=== PATIENT | female | born 1950 | race Caucasian/White ===

== ENCOUNTER → 2018-02-20 10:33 | Outpatient (CLI) | payer MEDICARE, SELFPAY ==
--- NOTE | 2018-02-20 10:38 | RAD_ITS ---
STUDY: X-RAY - PELVIS REASON FOR EXAM: Female, 67 years old. Fibromyalgia, psoriatic arthropathy TECHNIQUE: One view of the pelvis was obtained. COMPARISON: None. FINDINGS: There is a non-specific bowel gas pattern. Normal visualized soft tissue structures. Normal bilateral iliac wings, sacroiliac joints and visualized sacrum. Normal visualized bilateral superior and inferior pubic rami. Normal pubic symphysis. Normal ischial tuberosities. Normal visualized right femoral head. Normal right acetabulum. Normal right hip joint. Normal visualized left femoral head. Normal left acetabulum. Normal left hip joint. RAD/Pelvis 1 or 2 Views IMPRESSION: Normal x-ray examination of the pelvis. Electronically Signed: Lawrence Garzon MD at 20:00 EDT , Service support ,
[2018-02-20 12:22] LABS: Absolute Neutrophil Count 7.9 X10^3/uL (2.0-7.7); Basophil# 0.05 X10^3/uL; Basophil% 0.4 % (0-1); Eosinophil# 0.13 X10^3/uL; Eosinophils% 1.2 % (0-5); Hematocrit 41.3 % (37-47); Hemoglobin 13.2 g/dl (12.0-15.0); Lymphocyte % 20.5 % (19-41); Mean Corpuscular Hgb 30.2 pg (27.0-32.0); Mean Corpuscular Volume 94.5 fL (81-99); Monocyte# 0.82 X10^3/uL; Monocyte% 7.3 % (0-10); Neutrophil % 70.2 % (47-70); Platelet Count 267 K/mm3 (150-450); RBC Distribution Width CV 13.4 % (11.6-14.6); RBC Distribution Width SD 46.3 fl (35.1-43.9); Red Blood Count 4.37 M/mm3 (4.2-5.4); White Blood Count 11.2 K/mm3 (4.4-11.0)
[2018-02-20 12:23] LABS: Erythrocyte Sedimentation Rate 36 mm/hr (0-30)
[2018-02-20 12:24] LABS: POSITIVE COUNT NO; POSITIVE DIFFERENTIAL NO; POSITIVE MORPHOLOGY NO
[2018-02-20 13:00] LABS: ALB/GLOB Ratio 0.8 RATIO (0.9-2.4); AST(SGOT) 13 U/L (15-37); Alanine Aminotransfer ALT/SGPT 24 U/L (13-56); Albumin, Serum 3.6 g/dL (3.2-5.0); Alkaline Phosphatase 89 U/L (45-117); Anion Gap 9 (5-15); BUN 28 mg/dL (7-18); BUN/Creat Ratio 27.2 RATIO (10-20); CRP 3.45 mg/L (0.0-3.0); Calcium,Total 9.3 mg/dL (8.5-10.1); Chloride 102 mmol/L (98-107); Creatinine, Serum 1.03 mg/dL (0.55-1.02); EST Glomerular Filtration Rate 57 mL/min (>60); Est Glom Filt Rate - Afr Amer 69 mL/min (>60); Globulin 4.4 g/dL (2.2-4.2); Glucose 85 mg/dL (74-106); Potassium 4.5 mmol/L (3.5-5.1); Rheumatoid Factor < 10.0 IU/mL (<15); Sodium Level 138 mmol/L (136-145)
[2018-02-22 13:10] LABS: SJOGREN'S Anti-SS-A test < 0.2 AI (0.0-0.9); SJOGREN'S Anti-SS-B test < 0.2 AI (0.0-0.9)
[2018-02-22 13:42] LABS: ANTINUCLEAR ANTIBODIES DIRECT Negative (Negative)
== END ==
PROVIDERS: Family Provider Family Medicine; PCP Family Medicine; Referring Provider Internal Medicine Rheumatology; Visit Provider Internal Medicine Rheumatology
DX: L40.59 Other psoriatic arthropathy (principal); L40.8 Other psoriasis; M79.7 Fibromyalgia; M50.30 Other cervical disc degeneration, unspecified cervical region; M51.37 Other intervertebral disc degeneration, lumbosacral region; K21.9 Gastro-esophageal reflux disease without esophagitis; K44.9 Diaphragmatic hernia without obstruction or gangrene; E78.5 Hyperlipidemia, unspecified; J44.9 Chronic obstructive pulmonary disease, unspecified; R32 Unspecified urinary incontinence
CPT/HCPCS: 36415; 72170; 80053; 81374; 85025; 85652; 86038; 86140; 86200; 86235; 86431; 86480; 86706; 86803; 87340

== ENCOUNTER → 2018-02-25 09:12 | Outpatient (CLI) | payer MEDICARE, SELFPAY ==
--- NOTE | 2018-02-25 09:17 | US_ITS ---
STUDY: ABDOMINAL ULTRASOUND - RIGHT UPPER QUADRANT REASON FOR VISIT: Female, 67 years old. Elevated LFTs TECHNIQUE: Ultrasound evaluation of the right upper quadrant was performed with real-time and static verma-scale imaging. TECHNICAL QUALITY: Adequate. COMPARISON: None. FINDINGS: Liver: The liver measures 20 cm. Trace perihepatic fluid. There is fatty echogenicity of the liver. The bile ducts are within normal limits. There is hepatic color flow. The direction of portal flow is hepatopetal. There is no demonstrated mass lesion. Gallbladder: Status post cholecystectomy. Common Bile Duct (C.B.D.): The common bile duct measures 5 mm. Pancreas: Normal size of the head, body and tail of the pancreas. There is increased echogenicity of the pancreas. There is no demonstrated pancreatic mass or cyst. Right Kidney: Normal size of the right kidney. The right kidney measures 11.1 x 6.7 x 4.9 cm. Normal renal cortex. The right cortex measures 1.3 cm. There is a 2.8 cm cyst. There is no right hydronephrosis. US/Abdomen Limited IMPRESSION: Fatty enlarged liver. Trace perihepatic fluid Right renal cyst. Electronically Signed: Chet Hall DO at 22:42 EDT Tel [phone], Service support ,
== END ==
LOC: US 09:12
PROVIDERS: Family Provider Family Medicine; PCP Family Medicine; Referring Provider Internal Medicine Rheumatology; Visit Provider Internal Medicine Rheumatology
DX: L40.59 Other psoriatic arthropathy (principal); L40.8 Other psoriasis; M79.7 Fibromyalgia; M50.30 Other cervical disc degeneration, unspecified cervical region; M51.37 Other intervertebral disc degeneration, lumbosacral region; K21.9 Gastro-esophageal reflux disease without esophagitis; K44.9 Diaphragmatic hernia without obstruction or gangrene
CPT/HCPCS: 76705

== ENCOUNTER → 2018-03-11 11:40 | Outpatient (CLI) | payer MEDICARE, SELFPAY | PROVIDERS: Family Provider Family Medicine; PCP Family Medicine; Referring Provider Internal Medicine Rheumatology; Visit Provider Internal Medicine Rheumatology | DX: L40.59 Other psoriatic arthropathy (principal); L40.8 Other psoriasis; M79.7 Fibromyalgia; M50.30 Other cervical disc degeneration, unspecified cervical region; M51.37 Other intervertebral disc degeneration, lumbosacral region; K21.9 Gastro-esophageal reflux disease without esophagitis; K44.9 Diaphragmatic hernia without obstruction or gangrene; I10 Essential (primary) hypertension; E78.5 Hyperlipidemia, unspecified; J44.9 Chronic obstructive pulmonary disease, unspecified; R32 Unspecified urinary incontinence ==

== ENCOUNTER → 2018-04-15 10:22 | Outpatient (CLI) | payer MEDICARE, SELFPAY ==
[2016-03-10 10:25] VITALS: BMI 43.2
[2018-04-15 10:49] LABS: Absolute Lymphocyte Count 1.75 X10^3/ul (0.83-4.51); Absolute Neutrophil Count 5.1 X10^3/uL (2.0-7.7); Basophil# 0.03 X10^3/uL; Basophil% 0.4 % (0-1); Eosinophil# 0.11 X10^3/uL; Eosinophils% 1.5 % (0-5); Hematocrit 39.5 % (37-47); Hemoglobin 12.7 g/dl (12.0-15.0); Lymphocyte # 1.75 X10^3/ul (4.0); Lymphocyte % 23.1 % (19-41); Mean Corp Hgb Conc 32.2 g/gl (32-36); Mean Corpuscular Volume 96.3 fL (81-99); Mean Platelet Vol. 10.2 fl (6.2-12.0); Monocyte# 0.55 X10^3/uL; Monocyte% 7.3 % (0-10); Neutrophil % 67.4 % (47-70); Platelet Count 235 K/mm3 (150-450); RBC Distribution Width CV 13.9 % (11.6-14.6); RBC Distribution Width SD 46.5 fl (35.1-43.9); White Blood Count 7.6 K/mm3 (4.4-11.0)
[2018-04-15 10:51] LABS: POSITIVE COUNT NO; POSITIVE DIFFERENTIAL NO; POSITIVE MORPHOLOGY NO
[2018-04-15 11:14] LABS: ALB/GLOB Ratio 0.8 RATIO (0.9-2.4); AST(SGOT) 19 U/L (15-37); Alanine Aminotransfer ALT/SGPT 25 U/L (13-56); Albumin, Serum 3.3 g/dL (3.2-5.0); Alkaline Phosphatase 88 U/L (45-117); Anion Gap 8 (5-15); BUN 24 mg/dL (7-18); BUN/Creat Ratio 21.6 RATIO (10-20); Chloride 102 mmol/L (98-107); Creatinine, Serum 1.11 mg/dL (0.55-1.02); EST Glomerular Filtration Rate 52 mL/min (>60); Est Glom Filt Rate - Afr Amer 63 mL/min (>60); Globulin 4.2 g/dL (2.2-4.2); Glucose 94 mg/dL (74-106); Potassium 4.2 mmol/L (3.5-5.1); Protein, Total 7.5 g/dL (6.4-8.2); Sodium Level 138 mmol/L (136-145)
--- OUTSIDE RECORDS SUMMARY | 2018-06-08 15:29 | XMS RPT_ITS ---
:1950 Author Organization OHIP Care Team Providers Name Role Phone Julieth Gerardo Attending Unavailable Julieth Gerardo Referring Unavailable Flor Kovacs Primary Care Unavailable Julieth Gerardo Attending Unavailable Julieth Gerardo Referring Unavailable Flor Kovacs Primary Care Unavailable Julieth Gerardo Attending Unavailable Julieth Gerardo Referring Unavailable Flor Kovacs Primary Care Unavailable Julieth Gerardo Attending Unavailable Julieth Gerardo Referring Unavailable Flor Kovacs Primary Care Unavailable Flor Kovacs Attending Unavailable Flor Kovacs Primary Care Unavailable Flor Kovacs Admitting Unavailable Flor Kovacs Attending Unavailable Flor Kovacs Primary Care Unavailable Flor Kovacs Admitting Unavailable Flor Kovacs Attending Unavailable Flor Kovacs Primary Care Unavailable Flor Kovacs Attending Unavailable Flor Kovacs Primary Care Unavailable Flor Kovacs Admitting Unavailable MD AMELIA BOWEN Attending Unavailable Flor Kovacs Primary Care Unavailable MD AMELIA BOWEN Admitting Unavailable Amelia Bowen Admitting Unavailable Amelia Bowen Attending Unavailable Flor Kovacs Primary Care Unavailable Flor Kovacs Admitting Unavailable Flor Kovacs Attending Unavailable Flor Kovacs Primary Care Unavailable Flor Kovacs Admitting Unavailable Flor Kovacs Attending Unavailable Flor Kovacs Primary Care Unavailable Flor Kovacs Admitting Unavailable Flor Kovacs Attending Unavailable Flor Kovacs Primary Care Unavailable Flor Kovacs Admitting Unavailable Flor Kovacs Attending Unavailable Flor Kovacs Primary Care Unavailable PROBLEMS PROBLEMS DATE TYPE CONDITION / CODE ATTENDING STATUS SOURCE 04/15/2018 Unknown 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, 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 / Hospital L40.59(ICD-10) Repository 04/15/2018 Unknown L40.8 - Other Dennislanki, Julieth Active [facility] psoriasis / [facility] L40.8(ICD-10) Hospital Repository 04/15/2018 Unknown M79.7 - Fibromyalgia Akin, Julieth Active [place] / M79.7(ICD-10) [facility] Repository 04/15/2018 Unknown 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, Hospital unspecified cervical Repository region / M50.30(ICD-10) 04/15/2018 Unknown M51.37 - Other DennislanTaylor taylorma Active [facility] intervertebral disc Community degeneration, Hospital lumbosacral region / Repository M51.37(ICD-10) 04/15/2018 Unknown K76.0 - Fatty Juleith Gerardo Active [facility] (change of) liver, Community not elsewhere Hospital classified / Repository K76.0(ICD-10) 02/22/2018 Active Encounter for NA Active [facility] Main medical examination [place] without abnormal Repository findings / Z00.00(ICD-10) 02/20/2018 Unknown K21.9 - Julieth Gerardo Active [facility] reflux disease Hospital without esophagitis Repository / K21.9(ICD-10) 02/20/2018 Unknown K44.9 - VellanJulieth taylor Active [facility] Diaphragmatic hernia Community without obstruction Hospital or gangrene / Repository K44.9(ICD-10) PROCEDURES PROCEDURES No Procedure Records FoundRESULTS RESULTS CBC W/DIFF, AUTOMATED Collected: 04/15/2018 Status: F Source: [place] 10:28 AM [facility] REPOSITORY TYPE CODE TESTS RESULT OUT OF RANGE REFERENCE UNITS LAB L100.1000 4.4-11.0 K/mm3 Normal WBC 7.6 LAB L100.1200 4.2-5.4 M/mm3 Low RBC 4.10 LAB L100.1300 12.0-15.0 g/dl Normal HGB 12.7 LAB L100.1400 37-47 % Normal HCT 39.5 LAB L100.1500 81-99 fL Normal MCV 96.3 LAB L100.1600 27.0-32.0 pg Normal MCH 31.0 LAB L100.1700 32-36 g/gl Normal MCHC 32.2 LAB L100.1810 11.6-14.6 % Normal RDW CV 13.9 LAB L100.1820 35.1-43.9 fl High RDW SD 46.5 LAB L100.1900 150-450 K/mm3 Normal PLT 235 LAB L100.2000 6.2-12.0 fl Normal MPV 10.2 LAB L100.2100 47-70 % Normal NEUT% 67.4 LAB L100.2200 19-41 % Normal LY% 23.1 LAB L100.2300 0-10 % Normal MONO% 7.3 LAB L100.2400 0-5 % Normal EO% 1.5 LAB L100.2500 0-1 % Normal BASO% 0.4 LAB L100.2550 0.0-0.9 % Normal IM GRAN % 0.300 Result Comment: IG% - Immature Granulocytes (promyelocytes, myelocytes and metamyelocytes) > 1% indicates that a LEFT SHIFT is Present. LAB L100.2620 2.0-7.7 X10 3/uL Normal Absolute Neut 5.1 LAB L100.2720 0.83-4.51 X10 3/ul Normal Absolute Lymph 1.75 Performed By: #### L100.0100 #### [facility] [address] [place], [place], [id number] COMPREHENSIVE METABOLIC Collected: 04/15/2018 Status: F Source: [place] SAMANIEGO 10:28 AM [facility] REPOSITORY TYPE CODE TESTS RESULT OUT OF RANGE REFERENCE UNITS LAB L501.0100 74-106 mg/dL Normal GLU 94 Result Comment: Please note revised GLUCOSE reference range effective 2017. LAB L501.1000 7-18 mg/dL High BUN 24 LAB L501.1100 0.55-1.02 mg/dL High CREAT,SERUM 1.11 Result Comment: The validity of the calculated GFR AND GFRAA in patients over 70 years has not been determined. Clinical correlation is essential. LAB L501.1110 >60 mL/min Low EST GFR 52 Result Comment: Non- GFR Calc LAB L501.1115 >60 mL/min Normal EST GFR - AA 63 Result Comment: GFR Calc LAB L501.1300 10-20 RATIO High BUN/CRE 21.6 LAB L501.1500 6.4-8.2 g/dL T Normal PROT 7.5 LAB L501.1800 3.2-5.0 g/dL Normal ALB 3.3 LAB L501.1950 2.2-4.2 g/dL Normal GLOB 4.2 LAB L501.2000 0.9-2.4 RATIO Low A/G 0.8 LAB L501.2200 8.5-10.1 mg/dL CA Normal 9.0 LAB L501.4100 15-37 U/L Normal AST 19 LAB L501.4305 45-117 U/L Normal ALK P 88 LAB L501.4405 13-56 U/L Normal ALT 25 LAB L501.4600 0.20-1.00 mg/dL T Normal BILI 0.50 LAB L501.5300 136-145 mmol/L NA Normal 138 LAB L501.5600 3.5-5.1 mmol/L K Normal 4.2 LAB L501.5900 98-107 mmol/L CL Normal 102 LAB L501.6100 21.0-32.0 mmol/L Normal CO2 28.0 LAB L501.6200 5-15 Normal GAP 8 Performed By: #### L500.4050 #### [facility] [address] [place], [address] CT ABDOMEN/PELVIS W/ Observed: 03/15/2018 Status: F Source: ISLAM CONTRAST 3:44 PM [facility] REPOSITORY Exam Date/Time: 03/15/2018 16:03 EDT Reason for Exam: Other (please specify) Report STUDY: CT Abdomen/Pelvis w/ Contrast; 03/15/2018 4:03 pm INDICATION: Other (please specify). COMPARISON: Previous CT abdomen and pelvis 01/18/2016 ACCESSION NUMBER(S): [id number] ORDERING CLINICIAN: Demetrius Wray TECHNIQUE: Multiple axial images of the abdomen and pelvis were obtained with coronal and sagittal image reconstructions. 150 mL of Omnipaque 350 intravenous contrast was injected. FINDINGS: ABDOMEN: LOWER CHEST: Heart size is upper normal. No pericardial or pleural effusion.No airspace consolidation in the lung bases. There is patchy bibasilar opacity favoring atelectasis. LIVER: Low-attenuation of the liver parenchyma suggests steatosis, no focal liver lesion. SPLEEN: No focal splenic lesions. PANCREAS: No focal pancreatic lesions. ADRENALS: No focal nodules. GALLBLADDER: Not seen, presumed surgically absent. BILE DUCTS: No biliary ductal dilation KIDNEYS: The kidneys enhance symmetrically with bilateral renal cysts, no right or left hydronephrosis or nephrolithiasis. PELVIS: REPRODUCTIVE ORGANS: Status post hysterectomy, no suspicious adnexal mass. 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 URETERS AND BLADDER: No right or left hydroureter or ureteral calculus, unremarkable urinary bladder. VESSELS: Aorta and IVC are normal in caliber. Heavy aortoiliac atherosclerotic calcification. 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 BOWEL: There is a small hiatal hernia. Normal caliber stomach with a fluid-filled diverticulum at the fundus. Small bowel loops are normal in caliber without obstruction. There is a moderate amount of rectal stool with mild sigmoid diverticulosis, no diverticulitis. Retained stool is seen in the ascending and transverse colon. Normal appendix, no appendicitis. LYMPH NODES: No lymphadenopathy by CT size criteria. RETROPERITONEUM: No mass or adenopathy. Exam Date/Time: 03/15/2018 16:03 EDT Report PERITONEUM: No ascites or free air, no fluid collection. ABDOMINAL WALL: Tiny fat containing umbilical hernia, no suspicious body wall mass. BONES: No body destructive lesion. Multilevel lumbar spine DJD. IMPRESSION: Moderate amount of retained rectal stool. No acute inflammatory process seen in the abdomen or pelvis. Normal appendix with colonic diverticulosis, no diverticulitis. Chronic and incidental findings as above. FINAL REPORT Dictated: 03/15/2018 4:56 pm Janet You MD Signed (Electronic Signature): 03/15/2018 4:56 pm Signed by: Janet You MD Technologist: MANASA BARR Collected: 03/15/2018 Status: F Source: ISLAM 2:26 [facility] REPOSITORY TYPE CODE TESTS RESULT OUT OF RANGE REFERENCE UNITS LAB 86078619(L 70-99 mg/dL OINC) Glucose Normal Lvl 91 LAB 54567853(L 6-23 mg/dL OINC) BUN Normal 17 LAB 6207975(LO 0.6-1.3 mg/dL INC) Normal Creatinine 0.8 LAB 55426354(L 5.4-30.0 ratio OINC) Normal BUN/Creat Ratio 21.2 LAB 77742121(L 8.6-10.3 mg/dL OINC) Calcium Normal Lvl 9.5 LAB 08994532(L 136-145 mEq/L OINC) Sodium Normal Lvl 139 LAB 99988161(L 3.5-5.3 mEq/L OINC) Normal Potassium Lvl 4.2 LAB 50654016(L 98-107 mEq/L OINC) Chloride Normal 104 LAB 29604180(L 21.0-32.0 mEq/L OINC) CO2 Normal 30.0 Performed By: #### [id number] #### [facility] [employer] [address] [place] [address] HEP FUNC PANEL Collected: 03/15/2018 Status: F Source: ISLAM 2:26 [facility] REPOSITORY TYPE CODE TESTS RESULT OUT OF RANGE REFERENCE UNITS LAB 65529339(L 7-45 Int._Unit/L OINC) Normal ALT 19 LAB 28898059(L 9-39 Int._Unit/L OINC) Normal AST 14 LAB 03980576(L 3.4-5.0 G/DL OINC) Normal Albumin Lvl 3.7 LAB 60693850(L 2.0-4.0 G/DL OINC) Normal Globulin 3.0 LAB 06638993(L 1.1-1.9 ratio OINC) Normal A/G Ratio 1.2 LAB 01926608(L 33-136 Int._Unit/L OINC) Normal Alk Phos 81 LAB 38982471(L .00-.30 mg/dL OINC) Normal Bili Direct .06 LAB 47451765(L OINC) Normal Bili Indirect 0.4 Result Comment: No established ranges available for the Indirect Biliruben. LAB 05188089(LOINC) 0.0-1.2 mg/dL Normal Bili Total 0.5 LAB 57240208(LOINC) 6.4-8.2 gm/dL Normal Total Protein 6.8 Performed By: #### [id number] #### [facility] [employer] [address] [place] [address] EGFR Collected: 03/15/2018 Status: F Source: ISLAM 2:[address] [facility] REPOSITORY Order Comment: Order added by Discern Expert. TYPE CODE TESTS RESULT OUT OF RANGE REFERENCE UNITS LAB 86246157(LO mL/min/1.73 INC) m2 Normal eGFR >60 LAB 31923831(LO mL/min/1.73 INC) m2 Normal eGFR AA >60 Performed By: #### [id number] #### [facility] [employer] [address] [place] [address] CBC W/ AUTO DIFF Collected: 03/15/2018 Status: F Source: ISLAM 2:[address] [facility] REPOSITORY TYPE CODE TESTS RESULT OUT OF RANGE REFERENCE UNITS LAB 24115314(L 3.6-11.0 E3/mcL OINC) Normal WBC 7.5 LAB 63613805(L 3.90-5.40 E6/mcL OINC) Normal RBC 4.11 LAB 42973426(L 12.0-16.0 G/DL OINC) Normal Hgb 12.6 LAB 49978021(L 36.0-48.0 % OINC) Normal Hct 38.3 LAB 13709221(L 11.5-14.5 % OINC) Normal RDW 13.9 LAB 61597273(L 27.0-31.0 pg OINC) Normal MCH 30.7 LAB 21965966(L 33.0-37.0 G/DL OINC) Normal MCHC 33.0 LAB 63264974(L 78.0-100.0 fL OINC) Normal MCV 93.1 LAB 36251092(L 7.4-11.0 fL OINC) Normal MPV 8.6 LAB 96595255(L 130-400 E3/mcL OINC) Normal Platelet 212 Performed By: #### [id number] #### [facility] [employer] [facility] [place] [id number] PT Collected: 03/15/2018 Status: F Source: ISLAM 2:26 [facility] REPOSITORY TYPE CODE TESTS RESULT OUT OF RANGE REFERENCE UNITS LAB 49666940(LO 1.0-1.2 INC) Normal INR 1.0 Result Comment: INR Recommended Therapeuptic Ranges: Prophylaxis/treatment of DVT and PE?2.0-3.0 Prevention of systemic embolism?.2.0-3.0 Mechanical prosthetic values?2.5-3.5 CRITICAL VALUES?.>4.0 LAB 92209182(LOINC) 11.6-14.6 second(s) Normal 12.9 PT Performed By: #### [id number] #### [facility] [employer] [address] [place] [address] PTT Collected: 03/15/2018 Status: F Source: ISLAM 2:26 [facility] REPOSITORY TYPE CODE TESTS RESULT OUT OF RANGE REFERENCE UNITS LAB 74477011(LO 23.2-36.4 second(s) INC) Normal PTT 28.0 Performed By: #### [id number] #### [facility] [employer] [address] [place] [address] PTT CONTROL RATIO Collected: 03/15/2018 Status: F Source: ISLAM 2:26 [facility] REPOSITORY Order Comment: Order added by Discern Expert. TYPE CODE TESTS RESULT OUT OF RANGE REFERENCE UNITS LAB 30461395(LO 0.8-1.2 ratio INC) Normal PTT Ratio 0.9 Performed By: #### [id number] #### [facility] [employer] [address] [place] [address] AUTO DIFF Collected: 03/15/2018 Status: F Source: ISLAM 2:26 [facility] REPOSITORY Order Comment: Order Added by Discern Expert. TYPE CODE TESTS RESULT OUT OF RANGE REFERENCE UNITS LAB 03357631(L 37.0-75.0 % OINC) Normal Neutro Auto 66.3 LAB 91136784(L 20.0-55.0 % OINC) Normal Lymph Auto 24.0 LAB 99695111(L 0.0-10.0 % OINC) Normal [place] Auto 6.4 LAB 82134258(L 0.0-11.0 % OINC) Normal Eos Auto 2.1 LAB 17706538(L 0.0-2.0 % OINC) Normal Basophil Auto 1.2 LAB 72898691(L 1.4-6.5 E3/mcL OINC) Normal Neutro 5.0 Absolute LAB 80830179(L 1.2-3.4 E3/mcL OINC) Normal Lymph Absolute 1.8 LAB 36414033(L 0.0-0.7 E3/mcL OINC) Normal [place] Absolute 0.5 LAB 06934111(L 0.0-0.7 E3/mcL OINC) Normal Eos Absolute 0.2 LAB 43806295(L 0.0-0.2 E3/mcL OINC) Normal Basophil 0.1 Absolute Performed By: #### [id number] #### [facility] [employer] [facility] [place] [address] Observed: 03/14/2018 Status: F Source: ISLAM Oscar URINE 6:[address] [facility] REPOSITORY Final Report: >100,000 cfu/ml Escherichia coli ORGANISM: EC SUSCEPTIBILITY RESULTS Antibiotic PARUL Dilutn PARUL Interp ORGANISM: EC Amox/Cla : <=8/4 S Amp : <=8 S Amp/Sul : <=8/4 S Cefaz : <=8 S Cefo : <=2 S Cipro : <=1 S Gent : <=4 S Levo : <=2 S Nick : <=1 S Nitro : <=32 S Pip/Damon : <=16 S Tetra : <=4 S Tobra : <=4 S SXT : <=2/38 S Performed By: #### [id number] #### [facility] [employer] [place] [address] MISCELLANEOUS LAB Collected: 03/11/2018 Status: F Source: [place] PROCEDURE 11:46 AM [facility] REPOSITORY Order Comment: NO VRO PER J CEFERINO Comments: NEW QUANTIFERON 4 TUBE Test(s) Ordered: NEW QUANTIFERON 4 TUBE TYPE CODE TESTS RESULT OUT OF RANGE REFERENCE UNITS LAB L801.1541 Normal [facility] [place] Result Comment: TEST RESULT LIMITS QFT-TB Plus (Client Incubated) QuantiFERON Criteria The QuantiFERON-TB Gold Plus result is determined by subtracting the Nil value from either TB antigen (Ag) tube. The mitogen tube serves as a control for the test. QuantiFERON TB1 Ag Value 0.07 IU/mL QuantiFERON TB2 Ag Value 0.07 IU/mL QuantiFERON Nil Value 0.06 IU/mL QuantiFERON Mitogen Value >10.00 IU/mL QuantiFERON-TB Gold Plus Negative Negative The specimen received for QuantiFERON testing was incubated by the ordering institution. Specific procedures outlined in our Directory of Services and in the package insert for the QuantiFERON Gold (In Tube) test must be followed to enable for proper stimulation of cells for the production of interferon gamma. TESTING PERFORMED AT [facility]. ORIGINAL REPORT ON FILE IN LAB CONTAINS ADDITIONAL TEST SITE INFORMATION. Performed By: #### L801.1541 #### [facility] [address] [facility] [place], [address] UA COMPLETE Collected: 03/07/2018 Status: F Source: ISLAM 9:[address] [facility] REPOSITORY TYPE CODE TESTS RESULT OUT OF RANGE REFERENCE UNITS LAB 34357626( Yellow LOINC) Normal UA Color Yellow LAB 28658366( Clear LOINC) UA Clarity Abnormal SltCloudy LAB 25290028( Negative LOINC) Normal UA Glucose Negative LAB 31372287( Negative LOINC) Normal UA Bili Negative LAB 10952410( Negative LOINC) Normal UA Ketones Negative LAB 26597077( 1.003-1.030 LOINC) Normal UA Spec Grav 1.015 LAB 06442780( 4.6-8.0 LOINC) Normal UA pH 5.0 LAB 05448886( Negative LOINC) Normal UA Protein Negative LAB 61600504( mg/dL LOINC) Normal UA Urobilinogen Negative LAB 21471621( Negative LOINC) UA Nitrite Abnormal Positive LAB 79951896( Negative LOINC) UA Blood 1+ Abnormal LAB 51063988( Negative LOINC) UA Leuk Est 2+ Abnormal LAB 15713477( 0-3 /HPF LOINC) Normal UA RBC 0-3 LAB 12879182( 0-5 /HPF LOINC) UA WBC Abnormal >50 LAB 04085088( 0-5 /HPF LOINC) Normal UA Squam Epithelial 0-5 LAB 22772176( None /HPF LOINC) UA Bacteria 3+ Abnormal LAB 60290056( Trace /LPF LOINC) UA Mucous Abnormal Trace Performed By: #### [id number] #### [facility] Urinalysis [employer] [facility] [place] [address] LIPID PROFILE Collected: 03/07/2018 Status: F Source: ISLAM 9:[address] [facility] REPOSITORY TYPE CODE TESTS RESULT OUT OF RANGE REFERENCE UNITS LAB 38364842(LO 120-200 mg/dL INC) High Chol 228 Result Comment: TOTAL CHOLEESTEROL: <200 NORMAL 200 - 239 BORDERLINE HIGH >240 HIGH LAB 58097537(LOINC) mg/dL Normal HDL 56 LAB 19452754(LOINC) 0-130 mg/dL High LDL 152 Result Comment: <100 OPTIMAL 100-129 NEAR / ABOVE OPTIMAL 130-159 BORDERLINE HIGH 160-189 HIGH >190 VERY HIGH CALC LDL NOT VALID WHEN TRIGLYCERIDE IS >400 MG/DL LAB 44105942(LOINC) 0-150 mg/dL Normal Trig 102 Result Comment: <150 NORMAL 150-199 BORDERLINE HIGH 200-499 HIGH >500 VERY HIGH LAB 51565349(LOINC) Normal VLDL 20 Performed By: #### [id number] #### [facility] [employer] [address] [place] [address] TSH Collected: 03/07/2018 Status: F Source: ISLAM 9:[address] [facility] REPOSITORY TYPE CODE TESTS RESULT OUT OF RANGE REFERENCE UNITS LAB 94080660(LO 0.30-5.60 mIU/m INC) Normal TSH 3.14 Performed By: #### [id number] #### [facility] [employer] [address] [place] [address] ABDOMEN LIMITED Observed: 02/25/2018 Status: F Source: [place] 9:18 AM [facility] REPOSITORY [facility] Imaging Services [address] [place] [address] Abdomen Limited MR#: [id number] Acct: [id number] Name: KATLIN JOHNSTON I Rep #: [id number] : 1950 F 67 From: Chet Hall DO PCP: Flor Kovacs MD Status: REG CLI Study: Abdomen Limited Date of Exam: 02/25/18 Exam# [id number] Ordering Dr: Julieth Gerardo MD STUDY: ABDOMINAL ULTRASOUND - RIGHT UPPER QUADRANT REASON FOR VISIT: Female, 67 years old. Elevated LFTs TECHNIQUE: Ultrasound evaluation of the right upper quadrant was performed with real-time and static verma-scale imaging. TECHNICAL QUALITY: Adequate. COMPARISON: None. FINDINGS: Liver: The liver measures 20 cm. Trace perihepatic fluid. There is fatty echogenicity of the liver. The bile ducts are within normal limits. There is hepatic color flow. The direction of portal flow is hepatopetal. There is no demonstrated mass lesion. Gallbladder: Status post cholecystectomy. Common Bile Duct (C.B.D.): The common bile duct measures 5 mm. Pancreas: Normal size of the head, body and tail of the pancreas. There is increased echogenicity of the pancreas. There is no demonstrated pancreatic mass or cyst. Right Kidney: Normal size of the right kidney. The right kidney measures 11.1 x 6.7 x 4.9 cm. Normal renal cortex. The right cortex measures 1.3 cm. There is a 2.8 cm cyst. There is no right hydronephrosis. US/Abdomen Limited IMPRESSION: Fatty enlarged liver. Trace perihepatic fluid Right renal cyst. Electronically Signed: Chet Hall DO at 22:42 EDT Tel [phone], Service support , CC: Flor Kovacs MD; Julieth Gerardo MD [employer] Operator: Signed CBC W/DIFF, AUTOMATED Collected: 02/20/2018 Status: F Source: [place] 10:41 AM [facility] REPOSITORY TYPE CODE TESTS RESULT OUT OF RANGE REFERENCE UNITS LAB L100.1000 4.4-11.0 K/mm3 High WBC 11.2 LAB L100.1200 4.2-5.4 M/mm3 Normal RBC 4.37 LAB L100.1300 12.0-15.0 g/dl Normal HGB 13.2 LAB L100.1400 37-47 % Normal HCT 41.3 LAB L100.1500 81-99 fL Normal MCV 94.5 LAB L100.1600 27.0-32.0 pg Normal MCH 30.2 LAB L100.1700 32-36 g/gl Normal MCHC 32.0 LAB L100.1810 11.6-14.6 % Normal RDW CV 13.4 LAB L100.1820 35.1-43.9 fl High RDW SD 46.3 LAB L100.1900 150-450 K/mm3 Normal PLT 267 LAB L100.2000 6.2-12.0 fl Normal MPV 11.0 LAB L100.2100 47-70 % High NEUT% 70.2 LAB L100.2200 19-41 % Normal LY% 20.5 LAB L100.2300 0-10 % Normal MONO% 7.3 LAB L100.2400 0-5 % Normal EO% 1.2 LAB L100.2500 0-1 % Normal BASO% 0.4 LAB L100.2550 0.0-0.9 % Normal IM GRAN % 0.400 Result Comment: IG% - Immature Granulocytes (promyelocytes, myelocytes and metamyelocytes) > 1% indicates that a LEFT SHIFT is Present. LAB L100.2620 2.0-7.7 X10 3/uL High Absolute Neut 7.9 LAB L100.2720 0.83-4.51 X10 3/ul Normal Absolute Lymph 2.30 Performed By: #### L100.0100, L101.9900 #### [facility] [address] [place], [place], [id number] ERYTHROCYTE SED RATE Collected: 02/20/2018 Status: F Source: [place] 10:41 AM [facility] REPOSITORY TYPE CODE TESTS RESULT OUT OF RANGE REFERENCE UNITS LAB L102.0000 0-30 mm/hr High SED RATE 36 Performed By: #### L100.0100, L101.9900 #### [facility] [address] [place], [address] COMPREHENSIVE METABOLIC Collected: 02/20/2018 Status: F Source: [place] [facility] 10:41 AM [facility] REPOSITORY TYPE CODE TESTS RESULT OUT OF RANGE REFERENCE UNITS LAB L501.0100 74-106 mg/dL Normal GLU 85 Result Comment: Please note revised GLUCOSE reference range effective 2017. LAB L501.1000 7-18 mg/dL High BUN 28 LAB L501.1100 0.55-1.02 mg/dL High CREAT,SERUM 1.03 Result Comment: The validity of the calculated GFR AND GFRAA in patients over 70 years has not been determined. Clinical correlation is essential. LAB L501.1110 >60 mL/min Low EST GFR 57 Result Comment: Non- GFR Calc LAB L501.1115 >60 mL/min Normal EST GFR - AA 69 Result Comment: GFR Calc LAB L501.1300 10-20 RATIO High BUN/CRE 27.2 LAB L501.1500 6.4-8.2 g/dL T Normal PROT 8.0 LAB L501.1800 3.2-5.0 g/dL Normal ALB 3.6 LAB L501.1950 2.2-4.2 g/dL High GLOB 4.4 LAB L501.2000 0.9-2.4 RATIO Low A/G 0.8 LAB L501.2200 8.5-10.1 mg/dL CA Normal 9.3 LAB L501.4100 15-37 U/L Low AST 13 LAB L501.4305 45-117 U/L Normal ALK P 89 LAB L501.4405 13-56 U/L Normal ALT 24 LAB L501.4600 0.20-1.00 mg/dL T Normal BILI 0.50 LAB L501.5300 136-145 mmol/L NA Normal 138 LAB L501.5600 3.5-5.1 mmol/L K Normal 4.5 LAB L501.5900 98-107 mmol/L CL Normal 102 LAB L501.6100 21.0-32.0 mmol/L Normal CO2 27.0 LAB L501.6200 5-15 Normal GAP 9 Performed By: #### L500.4050, L501.6710, L505.7010 #### [facility] [address] [place], [place], [address] CRP Collected: 02/20/2018 Status: F Source: MODE 10:41 AM [facility] REPOSITORY TYPE CODE TESTS RESULT OUT OF RANGE REFERENCE UNITS LAB L501.6710 0.0-3.0 mg/L High 3.45 C-REACTIVE PROT Result Comment: C-Reactive Protein (CRP) provides useful information for the diagnosis, therapy and monitoring of inflammatory processes and associated diseases. For the evaluation of Relative Risk for Cardiovascular Disease, a High Sensitivity CRP (HSCRP) should be ordered. Performed By: #### L500.4050, L501.6710, L505.7010 #### [facility] [address] [facility] [place], [place], [address] RHEUMATOID FACTOR Collected: 02/20/2018 Status: F Source: MODE 10:41 AM [facility] REPOSITORY TYPE CODE TESTS RESULT OUT OF RANGE REFERENCE UNITS LAB L505.7010 <15 IU/mL Normal RHEUMATOID FAC < 10.0 Performed By: #### L500.4050, L501.6710, L505.7010 #### [facility] [address] [facility] [place], [place], [address] ANTINUCLEAR ANTIBODIES Collected: 02/20/2018 Status: F Source: MODE DIRECT 10:41 AM [facility] REPOSITORY TYPE CODE TESTS RESULT OUT OF RANGE REFERENCE UNITS LAB L3100.5475 Negative Normal Negative MARISELA-DIRECT Result Comment: Performed at: - [facility] [id number] Clamp Remover: Tomas Torres PhD, Phone: [phone] Performed By: #### L3100.54, L3100.1187 #### [facility] (refer to report for specific site) refer to report for address and phone number SJOGREN'S ANTIBODIES Collected: 02/20/2018 Status: F Source: [place] A/B 10:41 AM [facility] REPOSITORY TYPE CODE TESTS RESULT OUT OF RANGE REFERENCE UNITS LAB L3100.9200 0.0-0.9 AI Normal Anti-SS-A < 0.2 LAB L3100.9300 0.0-0.9 AI Normal Anti-SS-B < 0.2 Performed By: #### L3100.5475, L3100.9100 #### [facility] (refer to report for specific site) refer to report for address and phone number HEPATITIS B SURFACE Collected: 02/20/2018 Status: F Source: [place] AG 10:41 AM [facility] REPOSITORY TYPE CODE TESTS RESULT OUT OF RANGE REFERENCE UNITS LAB L3100.0400 Normal HB SURF AG Result Comment: TEST RESULT LIMITS HBsAg Screen Negative Negative TESTING PERFORMED AT [facility]. ORIGINAL REPORT ON FILE IN LAB CONTAINS ADDITIONAL TEST SITE INFORMATION. Performed By: #### L3100.0390, L3100.0528, L3100.0625, L3410.1400, L4600.0100 #### [facility] (refer to report for specific site) refer to report for address and phone number HEP B SURFACE Collected: 02/20/2018 Status: F Source: [place] ANTIBODIES 10:41 AM [facility] REPOSITORY TYPE CODE TESTS RESULT OUT OF RANGE REFERENCE UNITS LAB L3100.0528 Normal Hep B Aneudy AB Result Comment: TEST RESULT LIMITS Hep B Surface Ab Hep B Surface Ab, Qual Non Reactive Non Reactive: Inconsistent with immunity, less than 10 mIU/mL Reactive: Consistent with immunity, greater than 9.9 mIU/mL TESTING PERFORMED AT [facility]. ORIGINAL REPORT ON FILE IN LAB CONTAINS ADDITIONAL TEST SITE INFORMATION. Performed By: #### L3100.0390, L3100.0528, L3100.0625, L3410.1400, L4600.0100 #### [facility] (refer to report for specific site) refer to report for address and phone number HEPATITIS C ANTIBODIES Collected: 02/20/2018 Status: F Source: [place] 10:41 AM [facility] REPOSITORY TYPE CODE TESTS RESULT OUT OF RANGE REFERENCE UNITS LAB L3100.0650 Normal HEP C AB Result Comment: TEST RESULT LIMITS HCV Antibody Hep C Virus Ab <0.1 s/co ratio 0.0 - 0.9 Negative: < 0.8 Indeterminate: 0.8 - 0.9 Positive: > 0.9 The CDC recommends that a positive HCV antibody result be followed up with a HCV Nucleic Acid Amplification test (150592). Performed By: #### L3100.0390, L3100.0528, L3100.0625, L3410.1400, L4600.0100 #### [facility] (refer to report for specific site) refer to report for address and phone number HLA B27 Collected: 02/20/2018 Status: F Source: [place] 10:41 AM [facility] REPOSITORY TYPE CODE TESTS RESULT OUT OF RANGE REFERENCE UNITS LAB L3410.1500 Normal HLA B27 Result Comment: TEST RESULT LIMITS HLA B 27 Disease Association HLA-B27 Negative HLA-B*27 Negative B27 allele interpretation for all loci based on IMGT/HLA database version 3.27 This test was developed and its performance characteristics determined by [facility]. It has not been cleared or approved by the Food and Drug Administration. [facility] Lab CLIA ID Number [id number] This test was performed using PCR (Polymerase Chain Reaction)/SSOP (Sequence Specific Oligonucleotide Probes) technique. SBT (Sequence Based Typing) and/or SSP (Sequence Specific Primers) may be used as supplemental methods when necessary. Please contact [facility] Customer Service at if you have any questions. Director of HLA Laboratory Dr Yimi Farmer, PhD Performed By: #### L3100.0390, L3100.0528, L3100.0625, L3410.1400, L4600.0100 #### [facility] (refer to report for specific site) refer to report for address and phone number CCP IGG ANTIBODIES Collected: 02/20/2018 Status: F Source: MODE 10:41 AM [facility] REPOSITORY TYPE CODE TESTS RESULT OUT OF RANGE REFERENCE UNITS LAB L4600.0100 Normal ANTI-CCP 154786 Result Comment: TEST RESULT LIMITS CCP Antibodies IgG/IgA 7 units 0 - 19 Negative <20 Weak positive 20 - 39 Moderate positive 40 - 59 Strong positive >59 TESTING PERFORMED AT [facility]. ORIGINAL REPORT ON FILE IN LAB CONTAINS ADDITIONAL TEST SITE INFORMATION. Performed By: #### L3100.0390, L3100.0528, L3100.0625, L3410.1400, L4600.0100 #### [facility] (refer to report for specific site) refer to report for address and phone number PELVIS 1 OR 2 VIEWS Observed: 02/20/2018 Status: F Source: [place] 10:39 AM [facility] REPOSITORY [facility] Imaging Services [address] [address] Pelvis 1 or 2 Views MR#: [id number] Acct: [id number] Name: KATLIN JOHNSTON Rep #: [id number] : 1950 F 67 From: Lawrence Garzon MD PCP: Flor Kovacs MD Status: REG CLI Study: Pelvis 1 or 2 Views Date of Exam: 02/20/18 Exam# [id number] Ordering Dr: Julieth Gerardo MD STUDY: X-RAY - PELVIS REASON FOR EXAM: Female, 67 years old. Fibromyalgia, psoriatic arthropathy TECHNIQUE: One view of the pelvis was obtained. COMPARISON: None. FINDINGS: There is a non-specific bowel gas pattern. Normal visualized soft tissue structures. Normal bilateral iliac wings, sacroiliac joints and visualized sacrum. Normal visualized bilateral superior and inferior pubic rami. Normal pubic symphysis. Normal ischial tuberosities. Normal visualized right femoral head. Normal right acetabulum. Normal right hip joint. Normal visualized left femoral head. Normal left acetabulum. Normal left hip joint. RAD/Pelvis 1 or 2 Views IMPRESSION: Normal x-ray examination of the pelvis. Electronically Signed: Lawrence Garzon MD at 20:00 EDT , Service support , CC: Flor Kovacs MD; Julieth Gerardo MD [employer] Operator: Signed US BREAST UNILATERAL Observed: 07/23/2017 Status: F Source: [facility] 7:[address] [facility] REPOSITORY Exam Date/Time: 07/23/2017 08:25 EDT Reason for Exam: AXILLARY SWELLING FM HX BREAST CA PT NEEDS LEFT BREAST US ALSO;Other (please specify) Report LEFT DIGITAL DIAGNOSTIC MAMMOGRAMS WITH CAD/LEFT BREAST ULTRASOUND LIMITED HISTORY: {Follow-up nodules from previous mammogram. COMPARISON: 01/22/2017, 03/20/2016. FINDINGS: The breast parenchyma is moderately dense. Scattered calcifications are seen in the upper portion of the left breast. The nodular densities, seen on the CC view slightly lateral to the nipple on the previous examination are not seen on the present study. There has been no interval development of any spiculation. A nodular density in the posterior aspect of the left breast on the CC view has been present on previous examinations and is probably a lymph node. Ultrasound examination of the lateral half of the left breast is performed. There is echodense parenchyma. The patient was slightly tender in the axilla and at about the 3 o'clock position. However no solid mass lesion is seen. No architectural distortion. A cyst is present at the 4 o'clock position 6 cm from the nipple measuring 4 x 5 x 3 mm in size. The patient has been advised to continue physical examination, and have a reevaluation performed by her physician if she feels any mass lesion or change in the breast parenchyma on palpation. IMPRESSION: Dense breast parenchyma. No solid mass lesion. No axillary lymphadenopathy. BI-RADS 2 - Benign, no evidence of malignancy. Normal interval followup is recommended in 12 months. OVERALL ASSESSMENT- BENIGN A letter of notification will be sent to the patient regarding the results. Assessment / Recommendation: 2-1 Normal interval follow-up Breast density: Heterogeneously Dense Exam Date/Time: 07/23/2017 08:25 EDT Report Recall interval: 012 months FINAL REPORT Dictated: 07/23/2017 4:49 pm Robert Garcia MD Signed (Electronic Signature): 07/23/2017 4:49 pm Signed by: Robetr Garcia MD Technologist: INDER COPPOLA MAMM DIAG W/CAD IF Observed: 07/23/2017 Status: F Source: [place] PERFORMED LT 7:[address] [facility] REPOSITORY Exam Date/Time: 07/23/2017 07:57 EDT Reason for Exam: AXILLARY SWELLING FM HX BREAST CA PT NEEDS LEFT BREAST US ALSO;Other (please specify) Report LEFT DIGITAL DIAGNOSTIC MAMMOGRAMS WITH CAD/LEFT BREAST ULTRASOUND LIMITED HISTORY: {Follow-up nodules from previous mammogram. COMPARISON: 01/22/2017, 03/20/2016. FINDINGS: The breast parenchyma is moderately dense. Scattered calcifications are seen in the upper portion of the left breast. The nodular densities, seen on the CC view slightly lateral to the nipple on the previous examination are not seen on the present study. There has been no interval development of any spiculation. A nodular density in the posterior aspect of the left breast on the CC view has been present on previous examinations and is probably a lymph node. Ultrasound examination of the lateral half of the left breast is performed. There is echodense parenchyma. The patient was slightly tender in the axilla and at about the 3 o'clock position. However no solid mass lesion is seen. No architectural distortion. A cyst is present at the 4 o'clock position 6 cm from the nipple measuring 4 x 5 x 3 mm in size. The patient has been advised to continue physical examination, and have a reevaluation performed by her physician if she feels any mass lesion or change in the breast parenchyma on palpation. IMPRESSION: Dense breast parenchyma. No solid mass lesion. No axillary lymphadenopathy. BI-RADS 2 - Benign, no evidence of malignancy. Normal interval followup is recommended in 12 months. OVERALL ASSESSMENT- BENIGN A letter of notification will be sent to the patient regarding the results. Assessment / Recommendation: 2-1 Normal interval follow-up Breast density: Heterogeneously Dense Exam Date/Time: 07/23/2017 07:57 EDT Report Recall interval: 012 months FINAL REPORT Dictated: 07/23/2017 4:49 pm Robert Garcia MD Signed (Electronic Signature): 07/23/2017 4:49 pm Signed by: Robert Garcia MD Technologist: ARGENIS Assessment: BI-RADS Category 2-Benign finding Recommendation: Normal interval follow-up CMP Collected: 06/16/2017 Status: F Source: [place]AM 11:[address] [facility] REPOSITORY TYPE CODE TESTS RESULT OUT OF RANGE REFERENCE UNITS LAB 79965135(L 70-99 mg/dL OINC) Glucose Normal Lvl 86 LAB 12911483(L 8.4-10.2 mg/dL OINC) Calcium Normal Lvl 10.0 LAB 52199741(L 136-145 mEq/L OINC) Sodium Normal Lvl 138 LAB 47047217(L 3.5-5.1 mEq/L OINC) Normal Potassium Lvl 4.3 LAB 44834980(L 98-107 mEq/L OINC) Chloride Normal 99 LAB 02510383(L 24.0-30.0 mEq/L OINC) High CO2 30.3 LAB 33442219(L 7-18 mg/dL OINC) BUN Normal 18 LAB 1933494(LO 0.6-1.3 mg/dL INC) Normal Creatinine 1.0 LAB 49207573(L 42-121 Int._Unit/ OINC) L Alk Phos Normal 81 LAB 31354977(L 0.2-1.0 mg/dL OINC) Bili Normal Total 0.7 LAB 42593564(L 3.2-5.0 G/DL OINC) Albumin Normal Lvl 3.9 LAB 64854783(L 6.4-8.3 G/DL OINC) Total Normal Protein 7.7 LAB 48725093(L 10-40 Int._Unit/ OINC) L ALT Normal 25 LAB 01561680(L 10-42 Int._Unit/ OINC) L AST Normal 23 LAB 60655228(L 5.4-30.0 ratio OINC) Normal BUN/Creat Ratio 18.0 LAB 67456091(L 2.0-4.0 G/DL OINC) Globulin Normal 3.8 LAB 02022117(L 1.1-1.9 ratio OINC) Low A/G Ratio 1.0 Performed By: #### [id number] #### [facility] [place] [address] EGFR Collected: 06/16/2017 Status: F Source: IS[place]AM 11:00 [facility] REPOSITORY Order Comment: Order added by Discern Expert. TYPE CODE TESTS RESULT OUT OF RANGE REFERENCE UNITS LAB 17610929(LO mL/min/1.73 INC) m2 Normal eGFR 56 LAB 85249338(LO mL/min/1.73 INC) m2 Normal eGFR AA >60 Performed By: #### [id number] #### [facility] [place] [address] LIPID PROFILE Collected: 06/16/2017 Status: F Source: IS[place]AM 11:00 [facility] REPOSITORY TYPE CODE TESTS RESULT OUT OF RANGE REFERENCE UNITS LAB 19247634(LO 50-200 mg/dL INC) Normal Chol 167 Result Comment: TOTAL CHOLEESTEROL: <200 NORMAL 200 - 239 BORDERLINE HIGH >240 HIGH LAB 36129490(LOINC) >=41 mg/dL Normal HDL 57 LAB 61883996(LOINC) 0-130 mg/dL Normal LDL 80 Result Comment: <100 OPTIMAL 100-129 NEAR / ABOVE OPTIMAL 130-159 BORDERLINE HIGH 160-189 HIGH >190 VERY HIGH CALC LDL NOT VALID WHEN TRIGLYCERIDE IS >400 MG/DL LAB 50442954(LOINC) 35-150 mg/dL Normal Trig 148 Result Comment: <150 NORMAL 150-199 BORDERLINE HIGH 200-499 HIGH >500 VERY HIGH LAB 49005542(LOINC) Normal VLDL 30 Performed By: #### [id number] #### [facility] [address] [place] [address] TSH Collected: 06/16/2017 Status: F Source: IS[place]AM 11:00 AM [facility] REPOSITORY TYPE CODE TESTS RESULT OUT OF RANGE REFERENCE UNITS LAB 62083184(LO 0.30-5.60 mIU/m INC) Normal TSH 2.22 Performed By: #### 8718099 #### [facility] [address] [place] [address] ALLERGIES ALLERGIES DATE TYPE / CODE NAME / CODE REACTION SEVERITY SOURCE 03/01/2016 Drug codeine/Y65165 Hives Unknown [facility] Allergy/4160 1550(RXNORM) [facility] [address](SNOMED Repository CT) 03/27/2015 DRUG CODEINE HIVES [facility] INGREDI/[address] [address](SNOMED Repository CT) Drug/8264749 codeine HIVES Moderate [employer] 03([facility] CT) System Repository ENCOUNTERS ENCOUNTERS ADMIT/DISCHARGE ACCOUNT NUMBER ADMITTING ENCOUNTER LOCATION SOURCE CLASS 04/15/2018 [id number] [facility] ding:LAB Repository 04/11/2018/04/11/20 [id number] Flor Kovacs [address] ding:[place] Repository nt MedicRoom: Room 3 03/18/2018/03/18/20 [id number] Flor Kovacs [address] ding:[place] Repository nt MedicRoom: Room 1 03/15/[id number] Repository 03/14/2018/03/14/20 [id number] Flor Kovacs [address] ding[facility] Repository 03/14/[id number] Repository 03/11/2018 [id number] [facility] ding:LAB Repository 03/07/2018/03/07/20 [id number] Flor Kovacs [address] ding:.[facility] Repository 03/07/2018 [id number] Ambulatory [address] [place] [address] Repository 02/25/2018 [id number] Ambulatory [facility] ding: Repository 02/22/2018/02/26/20 [id number] Ambulatory [address] Repository 02/20/2018 [id number] Amb[facility] 12/27/2017/12/28/19 [id number] Flor Kovacs [address] ding:[place] Repository nt MedicRoom: Room 1 08/03/2017/08/04/[id number] Jessi [address] ding:[facility] IO Repository 07/31/2017/08/01/[id number] MD JESSI [address] ding:[facility] Repository 07/23/2017/07/24/19 [id number] Flor Kovacs [address] ding:[facility] System Repository 06/28/2017/06/28/[id number] ding:[place] Repository nt MedicRoom: Room 2 06/16/2017/06/16/19 [id number] Flor Kovacs [address] ding:[facility] System Repository PAYERS PAYERS ENCOUNTER GUARANTOR PAYER SUBSCRIBER SOURCE 04/15/2018 CLORITA I Primary CLORITA I [place] [id number] SR Insurance:HUMANA WORKMANDOB: [address] MEDICARE [facility] [id number] Hospital [address]Bpz: ([phone]) Number: Repository [phone] ) [id number] Date:[id number] [address]CL: 04/15/2018 Secondary NOT GIVENUNK [place] Insurance:SELF PAY [facility] Number: Effective Repository Date:2018-04-15 03/15/2018 CLORITA Primary CLORITA [employer] WORKMANDOB: Insurance:Humana Gold WORKMANDOB: Hospitals ChoicePolicy Number: [id number] Repository [address] [id number] [address] [place] [address] Date:Plan Name:[address] [id number]: [id number]: (HP) (HP) 03/14/2018 CLORITA [facility] WORKMANDOB: Insurance:Humana Gold WORKMANDOB: Hospitals ChoicePolicy Number: [id number] Repository [address] [id number] [address] [place] [address] Date:Plan Name:[address] [id number]: [id number]: (HP) (HP) 03/14/2018 Secondary [facility] Insurance:ChoiceCare WORKMANDOB: Hospitals HumanaPolicy Number: [id number] Repository [id number] [address] Date:Plan Name:[address] [id number]: () 03/11/2018 CLORITA I Primary CLORITA I [place] [id number] SR Insurance:HUMANA WORKMANDOB: [address] MEDICARE PPOPolic [id number] Hospital [address]Gam: (419) Number: Repository [phone] () [id number] Date:2506-05-09RW[address] [address]OL: 03/11/2018 Secondary NOT GIVENUNK [place] Insurance:SELF PAY [facility] Number: Effective Repository Date:2018-03-11 03/07/2018 [facility] WORKMANDOB: Insurance:Humana Gold WORKMANDOB: Hospitals ChoicePolicy Number: [id number] Repository [address] [id number] [address] [place] [address] Date:Plan Name:[address] [id number]: [id number]: () () 03/07/2018 Secondary CLORITA [employer] Insurance:ChoiceCare WORKMANDOB: Hospitals HumanaPoly Number: [id number] Repository [id number] [address] Date:Plan Name:[address] [id number]: () 02/25/2018 CLORITA I Primary CLORITA I [place] [id number] SR Insurance:HUMANA WORKMANDOB: [place] MEDICARE PPOPolicy [id number] Hospital [address]Dhn: [phone]) Number: Repository [phone] () [id number] Date:[id number] [address] [place] [id number]: 02/25/2018 Secondary NOT GIVENUNK [place] Insurance:SELF PAY [facility] Number: Effective Repository Date:2018-02-20 02/20/2018 CLORITA Primary CLORITA [place] [id number] SR Insurance:HUMANA WORKMANDOB: [place] MEDICARE PPOPolicy [id number] Hospital [address]Den: (419) Number: Repository [phone] () [id number] Date:5224-74-64AD [address] [place] [address]VB: 02/20/2018 Secondary NOT GIVENUNK [place] Insurance:SELF PAY [facility] Number: Effective Repository Date:2018-02-20 12/27/2017 CLORITA I Primary CLORITA I [place] WORKMANDOB: Insurance:1500 WORKMANDOB: [facility] Number: [id number] System [address] Effective [address] Repository [address] [place] [address] Date:2017-06-28 - [address] [place] [address] [id number]: [id number]: Name:CD:[id number].O. (HP) [address] [place] [address], (HP)Tel: 000 [place] [address]RE: (WP) [phone] 08/03/2017 CLORITA I Primary CLORITA I [place] WORKMANDOB: Insurance:HUMANAPolic WORKMANDOB: [facility] y Number: Effective [id number] System [address] Date:2017-08-02 [address] Repository [address] [place] [address] [id number]70Tel: Name:CD:[id number]: [address] [place] [address] (HP) [id number]: (866) (HP) 000-0000 (WP) 07/31/2017 CLORITA I Primary CLORITA I [place] WORKMANDOB: Insurance:HUMANAPolic WORKMANDOB: [facility] y Number: Effective [id number] System [address] Date:2017-07-27 [address] Repository [address] [place] [address] [id number] [address] [place], [place] [address]32[address]Tel: Name:CD:[id number] [place] [id number]: [address] [place] [address] (HP) [id number]: (866) (HP) 000-0000 (WP) 07/23/2017 CLORITA I Primary CLORITA I [place] WORKMANDOB: Insurance:HUMANAPolic WORKMANDOB: [facility] y Number: Effective [id number] System [address] Date:2017-07-17 [address] Repository [address] [place] [address] [id number] [address] [place] [address] [id number]: Name:CD:[id number] [id number]: [address] [place] [address] (HP) [id number]: ([phone]) (HP) 000-0000 (WP) 06/28/2017 CLORITA I Primary CLORITA I [place] WORKMANDOB: Insurance:1500 WORKMANDOB: [facility] HUMANAPolicy Number: [id number] [address] Effective [address] Repository [address] [place] [address] Date:2017-03-[address] [place] [address] [id number]: [id number] [id number]: Name:CD:[id number].O. (HP) [id number], (HP)Tel: (960) [place] [address]UK: (WP) [phone] 06/16/2017 CLORITA I Primary CLORITA I [place] WORKMANDOB: Insurance:HUMANAPolic WORKMANDOB: [facility] y Number: Effective [id number] [address] Date:2017-06-16 [address] Repository [address] [place] [address] [id number] [address] [place] [address] [id number]: Name:CD:[id number] [id number]: [address] [place] [address] [place] () [id number]: (866) (HP) 000-0000 (WP)
== END ==
LOC: LAB 10:25
PROVIDERS: Family Provider Family Medicine; PCP Family Medicine; Referring Provider Internal Medicine Rheumatology; Visit Provider Internal Medicine Rheumatology
DX: L40.59 Other psoriatic arthropathy (principal); L40.8 Other psoriasis; M79.7 Fibromyalgia; K76.0 Fatty (change of) liver, not elsewhere classified; M50.30 Other cervical disc degeneration, unspecified cervical region; M51.37 Other intervertebral disc degeneration, lumbosacral region
CPT/HCPCS: 36415; 80053; 85025

== ENCOUNTER → 2018-06-25 15:06 | Outpatient (CLI) | payer MEDICARE, SELFPAY ==
[2018-06-25 15:40] LABS: Absolute Lymphocyte Count 1.39 X10^3/ul (0.83-4.51); Basophil# 0.04 X10^3/uL; Basophil% 0.5 % (0-1); Eosinophil# 0.06 X10^3/uL; Eosinophils% 0.8 % (0-5); Hematocrit 42.2 % (37-47); Hemoglobin 13.4 g/dl (12.0-15.0); Lymphocyte # 1.39 X10^3/ul (4.0); Lymphocyte % 17.4 % (19-41); Mean Corp Hgb Conc 31.8 g/gl (32-36); Mean Corpuscular Hgb 31.2 pg (27.0-32.0); Mean Corpuscular Volume 98.1 fL (81-99); Mean Platelet Vol. 10.6 fl (6.2-12.0); Monocyte# 0.47 X10^3/uL; Monocyte% 5.9 % (0-10); Neutrophil # 6.03 X10^3/uL (2.7-7.7); Neutrophil % 75.3 % (47-70); Platelet Count 238 K/mm3 (150-450); RBC Distribution Width CV 13.9 % (11.6-14.6); RBC Distribution Width SD 48.1 fl (35.1-43.9)
[2018-06-25 15:50] LABS: POSITIVE COUNT NO; POSITIVE DIFFERENTIAL NO; POSITIVE MORPHOLOGY NO
[2018-06-25 16:13] LABS: ALB/GLOB Ratio 0.9 RATIO (0.9-2.4); AST(SGOT) 12 U/L (15-37); Alanine Aminotransfer ALT/SGPT 30 U/L (13-56); Albumin, Serum 3.6 g/dL (3.2-5.0); Alkaline Phosphatase 94 U/L (45-117); Anion Gap 7 (5-15); BUN 13 mg/dL (7-18); BUN/Creat Ratio 13.5 RATIO (10-20); Calcium,Total 9.4 mg/dL (8.5-10.1); Chloride 103 mmol/L (98-107); Creatinine, Serum 0.96 mg/dL (0.55-1.02); EST Glomerular Filtration Rate 62 mL/min (>60); Est Glom Filt Rate - Afr Amer 75 mL/min (>60); Globulin 4.2 g/dL (2.2-4.2); Glucose 95 mg/dL (74-106); Potassium 4.1 mmol/L (3.5-5.1); Protein, Total 7.8 g/dL (6.4-8.2); Sodium Level 141 mmol/L (136-145)
== END ==
LOC: LAB 15:09
PROVIDERS: Family Provider Family Medicine; PCP Family Medicine; Referring Provider Internal Medicine Rheumatology; Visit Provider Internal Medicine Rheumatology
DX: Z79.899 Other long term (current) drug therapy (principal); L40.59 Other psoriatic arthropathy; L40.8 Other psoriasis; M79.7 Fibromyalgia; K76.0 Fatty (change of) liver, not elsewhere classified; M50.30 Other cervical disc degeneration, unspecified cervical region; M51.37 Other intervertebral disc degeneration, lumbosacral region
CPT/HCPCS: 36415; 80053; 85025